=== PATIENT | male | born 1970 | race Caucasian/White ===

== ENCOUNTER 2018-06-14 15:06 | Inpatient (IN) | payer BC ==
[2018-06-14 15:37] VITALS: BMI 25.0
--- NOTE | 2018-06-14 16:26 | HP ---
CIWA Score Nausea/Vomitin-No Nausea/No Vomiting Muscle Tremors: 1-None Visible, but [place] Anxiety: 3 Agitation: 2 Paroxysmal Sweats: No Perspiration Orientation: 0-Oriented Tacttile Disturbances: 0-None Auditory Disturbances: 0-None Visual Disturbances: 0-None Headache: 0-None Present CIWA-Ar Total Score: 6 - Admission Criteria OASAS Guidelines: Admission for Medically Managed Detox: Requires at least one of the followin. CIWA greater than 12 2. Seizures within the past 24 hours 3. Delirium tremens within the past 24 hours 4. Hallucinations within the past 24 hours 5. Acute intervention needed for co occurring medical disorder 6. Acute intervention needed for co occurring psychiatric disorder 7. Severe withdrawal that cannot be handled at a lower level of care (continued vomiting, continued diarrhea, abnormal vital signs) requiring intravenous medication and/or fluids 8. Patient presents the following: Seizures, delirium tremens or hallucinations in the past 12 hours, Acute intervention needed for co-occurring med or psych disorder (Pt reports he has a hx of seizure from alcohol withdrawal sx. Reports last episode 3 yrs ago at his doctor's office while withdrawing.) Admission Criteria Met: Admission criteria met Admission ROS [facility] - [facility] Chief Complaint: "I HAVE ALCOHOL PROBLEM. I NEED HELP. I'VE BEEN DRINKING EVERYDAY SINCE February". Allergies/Adverse Reactions: Allergies Allergy/AdvReac Type Severity Reaction Status Date / Time No Known Allergies Allergy Verified 06/14/18 15:36 History of Present Illness: 48 Y/O MALE WITH A HX OF ALCOHOL DEPENDENCE SEEKING DETOX [place]. PT REPORTS PMHX OF SEIZURES R/T ALCOHOL WITHDRAWAL, GERD. REPORTS HX OF BLACKOUTS. DENIES PSYCH HX AND S/H/I. PT REPORTS PREVIOUS EPISODES OF DRUG TREATMENT, LAST TREATMENT WAS December TO January IN [place]. Exam Limitations: Intoxication - Ebola screening Have you traveled outside of the country in the last 21 days: No (N) Have you had contact with anyone from an Ebola affected area: No Do you have a fever: No - Review of Systems Constitutional: Loss of Appetite, Unexplained wgt Loss EENT: reports: No Symptoms Reported Respiratory: reports: No Symptoms reported Cardiac: reports: No Symptoms Reported GI: reports: Nausea, Poor Fluid Intake, Vomiting, Indigestion : reports: No Symptoms Reported Musculoskeletal: reports: No Symptoms Reported Integumentary: reports: Bruising (DUE TO FALL PURSUING AN INTRUDER 2 DAYS AGO.) , Rash (FACIAL) Neuro: reports: Seizure Endocrine: reports: No Symptoms Reported Hematology: reports: No Symptoms Reported Psychiatric: reports: Orientated x3 Other Systems: Reviewed and Negative Patient History - Patient Medical History Hx Anemia: No Hx Asthma: No Hx Chronic Obstructive Pulmonary Disease (COPD): No Hx Cardiac Disorders: No Hx Hypertension: No Hx Hypercholesterolemia: No HX Cerebrovascular Accident: No Hx Seizures: Yes (R/T WITHDRAWAL SX) Hx Diabetes: No Hx Gastrointestinal Disorders: Yes (DUE TO DRINKING) 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) Hx Genitourinary Disorders: No Hx Sexually Transmitted Disorders: No Hx Renal Disease (ESRD): No Hx Thyroid Disease: No Hx Human Immunodeficiency Virus (HIV): No (NEGATIVE HX) Hx Hepatitis C: No Hx Depression: No Hx Suicide Attempt: No (DENIES S/H/I) Hx Bipolar Disorder: No Hx Schizophrenia: No - Patient Surgical History Past Surgical History: Yes Hx Appendectomy: Yes (12 YRS AGO) Anesthesia Reaction: Yes - PPD History Previous Implant?: Yes Documented Results: Negative w/o proof Implanted On Prior [facility] Admission?: No PPD to be Administered?: Yes - Reproductive History Patient is a Female of Child Bearing Age (11 -55 yrs old): No (MALE) - Smoking Cessation Smoking history: Never smoked Have you smoked in the past 12 months: No Hx Chewing Tobacco Use: No Initiated information on smoking cessation: No - Substance & Tx. History Hx Alcohol Use: Yes Hx Substance Use: Yes Substance Use Type: Alcohol, Marijuana Hx Substance Use Treatment: Yes (IN [facility]) - Substances abused Alcohol Substance route: Oral Frequency: Daily Amount used: 20 ounces vodka Age of first use: 16 Date of last use: 06/14/18 Family Disease History - Family Disease History Family Disease History: Diabetes: Grandparent, Father (), [place]: Mother ( -THYROID [place]), Other: Brother (HIP REPLACEMENT) Admission Physical Exam [facility]HS - Vital Signs Vital Signs: Vital Signs - 24 hr 06/14/18 15:29 Temperature 97.1 F L Pulse Rate 100 H Respiratory 18 Rate Blood Pressure 129/87 - Physical General Appearance: Yes: Alcohol on Breath, Intoxicated, Anxious, Other ( OCASSIONAL ANGRY OUTBURSTS WHILE INTERVIEWING PT.) HEENTM: Yes: EOMI, Normocephalic, JACOB, Pharynx Normal Respiratory: Yes: Chest Non-Tender, Lungs Clear, Normal Breath Sounds, No Respiratory Distress Neck: Yes: Supple, Trachea in good position Breast: Yes: Breast Exam Deferred Cardiology: Yes: Regular Rhythm, S1, S2, Tachycardia Abdominal: Yes: Normal Bowel Sounds, Non Tender, Flat, Soft Genitourinary: Yes: Other (N/C) Back: Yes: Within Normal Limits Musculoskeletal: Yes: full range of Motion, Gait Steady Extremities: Yes: Normal Range of Motion, Non-Tender 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, Fully Oriented, Alert, Motor Strength 5/5 Integumentary: Yes: Dry, Warm, Rash (FACIAL RASH; PAPULAR RASH ON FACE UPPER ARMS AND BACK--ACNE.), Other (BRUISES ON LEFT AND RIGHT FOREARM; MODERATE SIZE ECHYMOTIC AREA ON LEFT FOREARM.) Lymphatic: Yes: Within Normal Limits - Diagnostic (1) Alcohol dependence with uncomplicated withdrawal Current Visit: Yes Status: Acute (2) Bruise of both arms Current Visit: Yes Status: Acute (3) Acne Current Visit: Yes Status: Chronic Qualifiers: Acne type: unspecified acne Qualified Code(s): L70.9 - Acne, unspecified Cleared for Admission S - Detox or Rehab [facility] Level of Care: Medically Managed Detox Regimen/Protocol: Librium Breathalyzer - Breathalyzer Breathalyzer: 0.292 Urine Drug Screen - Test Device Lot number: [id number] Expiration date: 01/15/20 - Control Is test valid?: Yes - Results Drug screen NEGATIVE: No Urine drug screen results: THC-Marijuana, BZO-Benzodiazepines Inpatient Rehab Admission - Rehab Decision to Admit Inpatient rehab admission?: No
[2018-06-14] MEDS ORDERED: ACETAMINOPHEN 325 MG TABLET (FP) PO PRN ×2 (16:51)
[2018-06-14] MEDS ORDERED: chlordiazePOXIDE HCL 25 MG CAPSULE PO PRN (16:51)
[2018-06-14] MEDS ORDERED: MENTHOL/PHENOL 1 EACH UD MM PRN (16:51)
[2018-06-14] MEDS ORDERED: MAGNESIUM HYDROX 2400MG/30ML ORAL SUSPENSION 30 ML CUP PO PRN (16:51)
[2018-06-14] MEDS ORDERED: MAGNESIUM CITRATE 300 ML BOTTLE PO PRN (16:51)
[2018-06-14] MEDS ORDERED: MELATONIN 5 MG TABLETS PO PRN (16:51)
[2018-06-14] MEDS ORDERED: METHOCARBAMOL 500 MG TABLET PO PRN (16:51)
[2018-06-14] MEDS ORDERED: hydrOXYzine PAMOATE 25 MG CAPSULE (FP) PO PRN (16:51)
[2018-06-14] MEDS ORDERED: IBUPROFEN 400 MG TABLET (FP) PO PRN (16:51)
[2018-06-14] MEDS ORDERED: BISMUTH SUBSALICYLATE 524 MG/30 ML UD PO PRN (16:51)
[2018-06-14] MEDS ORDERED: MAG HYDROX/AL HYDROX/SIMETH 30 ML UNIT-DOSE CUP PO PRN (16:51)
[2018-06-14] MEDS: chlordiazePOXIDE HCL 25 MG CAPSULE PO SCH ×2 (18:17→22:05)
[2018-06-14] MEDS ORDERED: THIAMINE HCL 100 MG TABLET (FP) PO SCH (22:00)
[2018-06-14] MEDS: BACITRACIN 0.9 GM PACKET TP SCH (22:04)
[2018-06-15 00:47] LABS: URINE APPEARANCE CLEAR; URINE BILIRUBIN 1+ (NEGATIVE); URINE COLOR DK YELLOW; URINE GLUCOSE (UA) NEGATIVE (NEGATIVE); URINE KETONE TRACE (NEGATIVE); URINE LEUK ESTERASE NEGATIVE (NEGATIVE); URINE NITRITE NEGATIVE (NEGATIVE); URINE PROTEIN TRACE (NEGATIVE)
[2018-06-15] MEDS: chlordiazePOXIDE HCL 25 MG CAPSULE PO SCH ×2 (05:06→10:07)
[2018-06-15 09:18] VITALS: BP 137/87; TEMP 97.6
--- NOTE | 2018-06-15 09:20 | PN ---
S CIWA - CIWA Score Nausea/Vomitin-Mild Nausea/No Vomiting Muscle Tremors: 4-Moderate,w/Arms Extend Anxiety: 3 Agitation: 3 Paroxysmal Sweats: 1-Minimal Palms Moist Orientation: 3-Disoriented Date>2 days Tacttile Disturbances: 0-None Auditory Disturbances: 0-None Visual Disturbances: 0-None Headache: 2-Mild CIWA-Ar Total Score: 17 [facility] Progress Note (SOAP) Subjective: headaches restlessness tired "just want to rest" Objective: 06/15/18 09:20 Vital Signs Temperature 97.6 F 06/15/18 09:17 Pulse Rate 101 H 06/15/18 09:17 Respiratory Rate 18 06/15/18 09:17 Blood Pressure 137/87 06/15/18 09:17 O2 Sat by Pulse Oximetry (%) Laboratory Last Values Urine Color Dk yellow 06/14/18 23:10 Urine Appearance Clear 06/14/18 23:10 Urine pH 6.0 (5.0-8.0) 06/14/18 23:10 Ur Specific [place] 1.012 (1.010-1.035) 06/14/18 23:10 Urine Protein Trace (NEGATIVE) 06/14/18 23:10 Urine Glucose (UA) Negative (NEGATIVE) 06/14/18 23:10 Urine Ketones Trace (NEGATIVE) H 06/14/18 23:10 Urine Blood Negative (NEGATIVE) 06/14/18 23:10 Urine Nitrite Negative (NEGATIVE) 06/14/18 23:10 Urine Bilirubin 1+ (NEGATIVE) H 06/14/18 23:10 Urine Urobilinogen 1.0 mg/dL (0.2-1.0) 06/14/18 23:10 Ur Leukocyte Esterase Negative (NEGATIVE) 06/14/18 23:10 lab noted Assessment: 06/15/18 09:21 alcohol withdrawal discontinue motrin bagin zantac Plan: continue detox
[2018-06-15] MEDS ORDERED: RANITIDINE HCL 150 MG TABLET (FP) PO SCH (10:00)
[2018-06-15] MEDS ORDERED: PRENATAL VITAMINS W/ FOLIC ACID TABLET (FP) PO SCH (10:00)
[2018-06-15] MEDS: BACITRACIN 0.9 GM PACKET TP SCH (10:06)
[2018-06-15 10:19] LABS: ALBUMIN 3.6 g/dl (3.4-5.0); ALK PHOS 132 U/L (45-117); ANION GAP 8 MMOL/L (8-16); BILIRUBIN,TOTAL 2.9 mg/dL (0.2-1); BLOOD UREA NITROGEN 6 mg/dL (7-18); CALCIUM 8.7 mg/dL (8.5-10.1); CHLORIDE 102 mmol/L (98-107); CO2 31 mmol/L (21-32); CREATININE 0.6 mg/dL (0.55-1.3); GLUCOSE,RANDOM 99 mg/dL (74-106); POTASSIUM 3.6 mmol/L (3.5-5.1); SGOT/AST 206 U/L (15-37); SGPT/ALT 82 U/L (13-61); SODIUM 140 mmol/L (136-145)
[2018-06-15 10:24] LABS: HEMATOCRIT 38.4 % (35.4-49); HEMOGLOBIN 13.4 GM/dL (11.7-16.9); MCH 33.8 pg (25.7-33.7); MCHC 34.8 g/dl (32.0-35.9); MEAN PLT VOLUME 8.5 fl (7.5-11.1); PLATELET COUNT 52 K/MM3 (134-434); RBC 3.96 M/mm3 (4.00-5.60); RDW 13.7 % (11.9-15.9); WHITE BLOOD COUNT 2.5 K/mm3 (4.0-10.0)
--- NOTE | 2018-06-15 10:29 | DS ---
[facility] Detox Discharge Summary Admission Date: 06/14/18 Discharge Date: 06/15/18 - History Present History: Alcohol Dependence Additional Comments: 48 years old male admitted on 06/14/18 for alcohol withdrawal stabilization report no intoxicated now feeling better today wants to leave the detox unit yesterday had little too much to drink no need for alcohol detox health teaching on negative consequences of alcohol misuse and preventable injury from alcohol intoxication patient is alert coherent speech steady gait no acute distress denies suicidal ideation Pertinent Past History: bring in medication list and lab report to follow up appointment - Physical Exam Results Vital Signs: Vital Signs Temperature 97.6 F 06/15/18 09:17 Pulse Rate 78 06/15/18 10:00 Respiratory Rate 18 06/15/18 10:00 Blood Pressure 137/87 06/15/18 09:17 O2 Sat by Pulse Oximetry (%) Pertinent Admission Physical Exam Findings: alcohol withdrawal sx Vital Signs Temperature 97.6 F 06/15/18 09:17 Pulse Rate 80 06/15/18 11:00 Respiratory Rate 18 06/15/18 10:00 Blood Pressure 137/87 06/15/18 09:17 O2 Sat by Pulse Oximetry (%) Laboratory Last Values WBC 2.5 K/mm3 (4.0-10.0) L 06/15/18 07:00 RBC 3.96 M/mm3 (4.00-5.60) L 06/15/18 07:00 Hgb 13.4 GM/dL (11.7-16.9) 06/15/18 07:00 Hct 38.4 % (35.4-49) 06/15/18 07:00 MCV 97.0 fl (80-96) H 06/15/18 07:00 MCH 33.8 pg (25.7-33.7) H 06/15/18 07:00 MCHC 34.8 g/dl (32.0-35.9) 06/15/18 07:00 RDW 13.7 % (11.9-15.9) 06/15/18 07:00 Plt Count 52 K/MM3 (134-434) L 06/15/18 07:00 MPV 8.5 fl (7.5-11.1) 06/15/18 07:00 Sodium 140 mmol/L (136-145) 06/15/18 07:00 Potassium 3.6 mmol/L (3.5-5.1) 06/15/18 07:00 Chloride 102 mmol/L (98-107) 06/15/18 07:00 Carbon Dioxide 31 mmol/L (21-32) 06/15/18 07:00 Anion Gap 8 MMOL/L (8-16) 06/15/18 07:00 BUN 6 mg/dL (7-18) L 06/15/18 07:00 Creatinine 0.6 mg/dL (0.55-1.3) 06/15/18 07:00 Creat Clearance w eGFR 143.20 (>60) 06/15/18 07:00 Random Glucose 99 mg/dL (74-106) 06/15/18 07:00 Calcium 8.7 mg/dL (8.5-10.1) 06/15/18 07:00 Total Bilirubin 2.9 mg/dL (0.2-1) H 06/15/18 07:00 AST 206 U/L (15-37) H 06/15/18 07:00 ALT 82 U/L (13-61) H 06/15/18 07:00 Alkaline Phosphatase 132 U/L (45-117) H 06/15/18 07:00 Total Protein 7.0 g/dl (6.4-8.2) 06/15/18 07:00 Albumin 3.6 g/dl (3.4-5.0) 06/15/18 07:00 Urine Color Dk yellow 06/14/18 23:10 Urine Appearance Clear 06/14/18 23:10 Urine pH 6.0 (5.0-8.0) 06/14/18 23:10 Ur Specific [place] 1.012 (1.010-1.035) 06/14/18 23:10 Urine Protein Trace (NEGATIVE) 06/14/18 23:10 Urine Glucose (UA) Negative (NEGATIVE) 06/14/18 23:10 Urine Ketones Trace (NEGATIVE) H 06/14/18 23:10 Urine Blood Negative (NEGATIVE) 06/14/18 23:10 Urine Nitrite Negative (NEGATIVE) 06/14/18 23:10 Urine Bilirubin 1+ (NEGATIVE) H 06/14/18 23:10 Urine Urobilinogen 1.0 mg/dL (0.2-1.0) 06/14/18 23:10 Ur Leukocyte Esterase Negative (NEGATIVE) 06/14/18 23:10 lab noted strong recommend follow up with primary care provider for repeat cbc and liver enzyme discuss alcohol related liver insult - Treatment Hospital Course: Detox Protocol Followed, Responded well Patient has Accepted a Rehab Referral to: community self help meeting - Medication Discharge Medications: Ambulatory Orders Esomeprazole Magnesium [Nexium 24Hr] 20 mg PO DAILY 06/14/18 - Diagnosis (1) Liver enzyme elevation Status: Acute (2) Leukocytosis, unspecified Status: Chronic Qualifiers: Leukocytosis type: unspecified Qualified Code(s): D72.829 - Elevated white blood cell count, unspecified (3) Alcohol dependence with uncomplicated withdrawal Status: Acute (4) GERD (gastroesophageal reflux disease) Status: Chronic Qualifiers: Esophagitis presence: without esophagitis Qualified Code(s): K21.9 - Gastro -esophageal reflux disease without esophagitis - AMA Did Patient Leave Against Medical Advice: Yes
[2018-06-15 11:18] VITALS: PULSE 80
--- NOTE | 2018-06-15 12:55 | EKG ---
Test Reason : Blood Pressure : / mmHG Vent. Rate : 089 BPM Atrial Rate : 089 BPM P-R Int : 146 ms QRS Dur : 100 ms QT Int : 394 ms P-R-T Axes : 061 052 039 degrees QTc Int : 479 ms NORMAL SINUS RHYTHM NORMAL ECG NO PREVIOUS ECGS AVAILABLE Confirmed by ISABEL MYERS, SARAH ([id number]) on 06/15/2018 12:54:53 PM Referred By: Confirmed By:SARAH HALL MD
[2018-06-15] MEDS ORDERED: chlordiazePOXIDE HCL 25 MG CAPSULE PO SCH (17:00)
[2018-06-16] MEDS ORDERED: chlordiazePOXIDE HCL 10 MG CAPSULE PO PRN (17:00)
[2018-06-16] MEDS ORDERED: chlordiazePOXIDE HCL 10 MG CAPSULE PO SCH (17:00)
[2018-06-17] MEDS ORDERED: chlordiazePOXIDE HCL 10 MG CAPSULE PO SCH (17:00)
== END 2018-06-15 11:35 | disposition left against medical advice (07) | DRG 770 ==
LOC: YASAS 15:06 → Y3N 17:35
PROVIDERS: ADMIT Surgery; ATTEND Surgery
PROC: HZ2ZZZZ Detoxification Services for Substance Abuse Treatment (ICD-10-PCS; principal; 2018-06-14)
DX: F10.230 Alcohol dependence with withdrawal, uncomplicated (principal); D72.829 Elevated white blood cell count, unspecified; K21.9 Gastro-esophageal reflux disease without esophagitis; R74.8 Abnormal levels of other serum enzymes; G40.509 Epileptic seizures related to external causes, not intractable, without status epilepticus; L21.9 Seborrheic dermatitis, unspecified; S40.021A Contusion of right upper arm, initial encounter; S40.022A Contusion of left upper arm, initial encounter
CPT/HCPCS: 36415; 80053; 81003; 85027; 86593; 93005; 93010